=== PATIENT | male | born 1985 | race Two or more races ===

== ENCOUNTER 2022-06-17 21:18 | Emergency (ER) | payer MEDICAID, OTHER ==
[~2022-06-17] VITALS: Ht 177.8 cm; Wt 106.6 kg
--- NOTE | 2022-06-17 21:21 | NUR ---
18GA TO [employer] ESTABLISHED [employer]GRAM[employer]
--- NOTE | 2022-06-17 21:25 | NUR ---
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 PT AAOX4, PLACED COMFORTABLY IN BED, IN NAD, DENIES PAIN. VITALS CHECKED.
[2022-06-17] MEDS ORDERED: IV NS 0.9% 1,000 ML BAG IV ONE (22:30)
--- NOTE | 2022-06-17 23:11 | NUR ---
Patient discharged to home in stable condition. Written and verbal after care instructions given. Patient verbalizes understanding of instruction.IV removed. Catheter intact and site benign. Pressure and 4x4 applied to site. No bleeding noted. Pt ambulatory with a steady gait.
[2022-06-17 23:13] VITALS: BP 102/63
== END 2022-06-17 23:14 | disposition home or self-care (01) ==
LOC: ER 21:19
DX: E86.0 Dehydration (principal)
CPT/HCPCS: 99283; 96360; J7030